=== PATIENT | female | born 1975 | race Caucasian/White ===

== ENCOUNTER 2017-05-13 16:22 | Emergency (ER) | payer OTHER ==
[~2017-05-13] VITALS: Ht 162.6 cm; Wt 84.1 kg
[2017-05-13 16:32] VITALS: BP 165/95; PULSE 119; RESP 20; O2SAT 98
--- NOTE | 2017-05-13 19:07 | ED.REPORT ---
HPI-Back Pain Under 40 Date of Service May 13, 2017 ED Provider: Shaun Andres DO Patient is a 41 year female with a history of chronic bilateral leg and low back pain, fibromyalgia and osteoarthritis who presents to the ED complaining of acute on chronic back pain onset today. Associated symptoms that started last night include vomiting, headache and diarrhea. She denies hematochezia or hematemesis. Patient reports that she has been taking more of her pain medications without relief. The patient denies recent antibiotics, being exposed to C. diff or drinking stream water. Nursing Notes Stated Complaint: EXCESSIVE PAIN Chief Complaint: Back Pain or Injury Nursing Notes Reviewed: Yes Allergies: Coded Allergies: morphine (Verified Adverse Reaction, Mild, NAUSEA, 09/08/09) Scheduled Buprenorphine HCl/Naloxone HCl (Suboxone 8 mg-2 mg Sl Film) 1 Each Film 1 EACH SL BID Ondansetron ODT (Ondansetron ODT) 8 Mg Tab.rapdis 8 MG PO TID General Time Seen by MD: 19:07 Chief Complaint Back pain Hx Obtained From: Patient Arrived By: Walk-in Sudden in Onset?: Yes Onset Occurred: 5 - 8 hours ago Symptom Duration: Since onset Caused by: Spontaneous/no mechanism Location: : Spinal lumbar area Quality: Painful Severity: Current: Severe Recent Healthcare: No recent doctor visit, No recent hospitalization Similar Sx Previous: Yes Past Medical History Past Medical History fibromyalgia osteoarthritis chronic bilateral leg and low back pain Social History Other Social History: Good social support, Ambulatory Status Independent Review of Systems Constitutional: Denies: Chills, Fever Respiratory: Denies: Non-productive cough GI: Reports: Diarrhea, Nausea, Vomiting, Denies: Hematemesis, Hematochezia Musculoskeletal: Reports: Back pain Complete sys rev & neg: except as marked. Physical Exam Initial Vital Signs Vital Signs (First) Date Time Temp Pulse Resp B/P Pulse Ox O2 Delivery O2 Flow Rate FiO2 05/13/17 16:32 36.9 119 20 165/95 98 Room Air Initial VS: Reviewed General/Constitutional: Awake, Alert, No acute distress Back: Atraumatic low lumbar and sacral tenderness Neurologic: Oriented X3, Speech NL, No motor deficits, No sensory deficits Respiratory / Chest: Atraumatic, No respiratory distress Cardiovascular: Regular rhythm, Heart sounds NL Heart Rate / Rhythm: Positive: Tachycardia Lower Extremity / Pelvis / MS: Atraumatic, Inspection NL, Full range of motion Head / Eyes: Atraumatic, Normocephalic, PERRL, EOMI Skin: Atraumatic, Color NL, No rash, Warm, Dry Psychiatric: Affect NL, Mood NL Interpretation & Diagnostics Lab Results Interpretation Result Diagram: 05/13/17193105/13/171931 Test 05/13/17 19:32 05/13/17 20:43 05/13/17 20:50 White Blood Count 12.0th/mm3 (3.8-10.1) Red Blood Count 5.16mil/mm3 (3.90-5.20) Hemoglobin 15.9g/dL (12.0-15.6) Hematocrit 46.9% (35.0-46.0) Mean Corpuscular Volume 90.9fL (81-100) Mean Corpuscular Hemoglobin 30.8pg (27.0-35.0) Mean Corpuscular Hemoglobin Concent 33.9% (32.0-37.0) Red Cell Distribution Width 13.3% (12.3-15.4) Platelet Count 308bil/L (150-400) Neutrophils (%) (Auto) 72.0% (40-74) Lymphocytes (%) (Auto) 20.9% (14-46) Monocytes (%) (Auto) 6.5% (4-12) Eosinophils (%) (Auto) 0.1% (0-5) Basophils (%) (Auto) 0.3% (0-3) Hold Purple Top Tube Received (Received) Hold Blue Top Tube Received (Received) Sodium Level 139mEq/L (134-144) Potassium Level 3.8mEq/L (3.5-5.2) Chloride Level 102mEq/L (97-108) Carbon Dioxide Level 18mmol/L (18-29) Blood Urea Nitrogen 8mg/dL (6-20) Creatinine 0.63mg/dL (0.57-1.00) Estimat Glomerular Filtration Rate 151mL/min (>59) Glucose Level 123mg/dL (60-99) Calcium Level 9.9mg/dL (8.5-10.1) Magnesium Level 2.0mg/dL (1.6-2.6) Total Bilirubin 0.4mg/dL (0.0-1.2) Aspartate Amino Transf (AST/SGOT) 11U/L (0-50) Alanine Aminotransferase (ALT/SGPT) 11U/L (0-32) Alkaline Phosphatase 47U/L (25-150) Total Protein 8.3g/dL (6.4-8.4) Albumin 4.6g/dL (3.4-5.0) Lipase 46U/L (13-60) Human Chorionic Gonadotropin, Qual Negative (Negative) Hold [place] Top Tube Received (Received) Lactic Acid Level 0.8mmol/L (0.4-2.0) Urine Color Yellow (YELLOW) Urine Appearance Clear (CLEAR,HAZY) Urine pH 5.5 (5.0-8.0) Urine Specific [place] 1.030 (1.003-1.035) Urine Protein Tracemg/dL (NEG,TRACE) Urine Glucose (UA) Negativemg/dL (NEGATIVE) Urine Ketones 40mg/dL (NEGATIVE) Urine Occult Blood Trace (NEGATIVE) Urine Nitrite Negative (NEGATIVE) Urine Bilirubin Negative (NEGATIVE) Urine Urobilinogen Normalmg/dL (NORMAL) Urine Leukocyte Esterase Negative (NEGATIVE) Urine RBC 0-2/hpf (0-2) Urine WBC 0-5/hpf (0-5) Urine Epithelial Cells Few/hpf (NONE-MOD) Urine Crystals None seen (NONE SEEN) Urine Bacteria Few/hpf (NONE-FEW) Urine Hyaline Casts None/lpf (NONE) Urine Granular Casts None seen (NONE SEEN) Urine Waxy Casts None seen (NONE SEEN) Urine Red Blood Cell Casts None seen (NONE SEEN) Urine White Blood Cell Casts None seen (NONE SEEN) Urine Mucus None seen (None Seen) Urine Trichomonas None seen (NONE SEEN) Urine Yeast None (NONE SEEN) Urinalysis Comment None Urine Culture Reflexed Not indicated Re-Eval/Medical Decision Med Decision/Clinical Course Patient denies IV drug use. She has no risk factors for infection, epidural abscess or cord syndrome. Patient denies recent falls or injury. Further imaging is unnecessary at this time. Dr. Danielle was consulted regarding her opiate use. He feels that she will be a viable candidate at [facility]. She is to start Suboxone therapy tomorrow. She will notify her pain clinic that she is going to go through Suboxone treatment. Dr. Danielle: ED Suboxone consultation: I spent approximately one half hour discussing pain management options with this patient. She is currently on an unusual combination of full opiate agonists and partial opiate agonists ( Percocet and Suboxone). She is not satisfied with her pain management to date. She would [facility] to transfer [facility]. She definitely meets substance use disorder diagnostic criteria including taking almost double doses of her prescribed pain medicine for the first part of the month and then going without for the remainder. She is also on diazepam 5 mg twice a day and a four- week taper was recommended for this. She will call the priority access line with [facility] and schedule appointment to see me later in the week. Please see discharge instructions for details of medications. Re-Evaluation/Progress : Time of Eval: 23:30 Patient Status: Condition improved, Pain improved Re-Evaluation/Progress Note: Discussed plan for discharge and follow up with [facility]. Patient understands and agrees to plan. All questions were addressed. Consultation : Referral / Consult Name: Morgan Danielle MD Consulted With: On-call physician Call Returned at: 22:47 Gallery Manager: Will see patient Note: Dr. Danielle will see the patient to discuss if she is eligible for Suboxone treatment. Counseled Regarding: Diagnosis, Lab results, Need for follow-up, When/why to return to ED Discharge & Departure Impression: Primary Impression: Low back pain Chronicity: chronic Back pain laterality: bilateral Sciatica presence: with sciatica Sciatica laterality: bilateral sciatica Qualified Code: M54.42 - Lumbago with sciatica, left side Disposition: Home All VS Reviewed: Yes Condition: Stable Patient Instructions: Non-pharmacological Pain Management Therapies for Adults (ED), Opioid Pain Management (ED) Additional Instructions: Your labs were normal and reassuring. Do not drive tonight, as you received pain medication at the ED. Be sure to drink plenty of fluids. Return to the emergency department if you develop any new or concerning symptoms including incontinence, numbness, weakness or trouble walking. Suboxone alone may be a reasonable pain management to continue your situation. Recommend that you abstain from opiates for a full 24 hours. This will cause withdrawal symptoms which you can treat with the ondansetron (Zofran) for nausea and [id number] Imodium as needed for diarrhea and cramping. At the end of the 24 hours you may take Suboxone 8 mg dissolved orally. Allow the medication to sit in your mouth for a full 20 minutes. Do not swallow your spit during that time. Any medication that is swallowed will be wasted. Continue Suboxone 8/2 tabs or strips twice daily. You will need to gradually reduce your diazepam. Once you have started the new dose of Suboxone, reduce your diazepam dose to 7.5 mg daily for 1 week, then 5 mg daily for 1 week, then 2.5 mg daily for 1 week, then stop. We can modify this taper if needed but we cannot continue the same dose of diazepam with the Suboxone. Call [facility] Monday at [phone] for a priority appointment with me this week. Referrals: Jane Brice PA-C (PCP) [facility] Tena Attestation Portions of this note were transcribed by Neva Mckeon. I, Dr. Andres personally performed the history, physical exam and medical decision-making; I reviewed and confirmed the accuracy of the information in the transcribed note. Signed by: Tena Jordan, 05/13/17 and 1945. copies to: Jane Brice PA-C ; [facility] Shaun Andres DO May 13, 2017 19:07 Flori Mckeon May 13, 2017 19:40 Morgan Danielle MD May 13, 2017 23:42
[2017-05-13 19:38] VITALS: BP 153/94; PULSE 99; RESP 21; O2SAT 99
[2017-05-13] MEDS ORDERED: 0.9% Sodium Chloride 1,000 ML IV ONE (20:01)
[2017-05-13] MEDS ORDERED: Ondansetron 2 mg/mL 2 mL Inj IVPUSH PRN (20:05)
[2017-05-13 20:09] LABS: BASOPHILS % (AUTO) 0.3 % (0-3); EOSINOPHILS % (AUTO) 0.1 % (0-5); MONOCYTES % (AUTO) 6.5 % (4-12); Mean Corpuscular Hemoglobin 30.8 pg (27.0-35.0); Mean Corpuscular Volume 90.9 fL (81-100); Platelet Count 308 bil/L (150-400)
[2017-05-13] MEDS: HYDROmorphone 0.5 mg/0.5 mL iSecure Syringe IVPUSH PRN ×2 (20:21→21:14)
[2017-05-13 20:31] LABS: Lipase 46 U/L (13-60)
[2017-05-13 21:16] VITALS: BP 140/83; PULSE 86; RESP 12; O2SAT 99
[2017-05-13 21:24] LABS: APPEARANCE,URINE CLEAR (CLEAR,HAZY); COLOR,URINE YELLOW (YELLOW); OCCULT BLOOD,URINE TRACE (NEGATIVE); PH,URINE 5.5 (5.0-8.0); UROBILINOGEN,URINE NORMAL (NORMAL)
[2017-05-13 22:43] VITALS: BP 116/48; PULSE 78; RESP 21; O2SAT 98
[2017-05-13] MEDS ORDERED: BUPR1FIL3 SL (23:47)
[2017-05-13] MEDS ORDERED: ONDA8TAB10 PO (23:47)
[2017-05-14 00:10] VITALS: BP 136/70; PULSE 86; RESP 18; O2SAT 98
== END 2017-05-14 00:11 | disposition home or self-care (01) ==
LOC: SED 16:22
DX: M54.41 Lumbago with sciatica, right side (principal); M54.42 Lumbago with sciatica, left side; R11.10 Vomiting, unspecified; R51 Headache; R19.7 Diarrhea, unspecified; M79.7 Fibromyalgia; Z88.5 Allergy status to narcotic agent
CPT/HCPCS: 36415; 80053; 81000; 83605; 83690; 83735; 84703; 85025; 96361; 96374; 96375; 96376; 99285; J1170; J2405; J7030